=== PATIENT | male | born 1935 | race Caucasian/White ===

== ENCOUNTER → 2019-04-04 | Outpatient (CLI) | payer OTHER ==
[~2019-04-04] MED LIST: NAPROSYN500 MG PO; PRAVACHOL20 MG PO; SYNTHROID100 MC1 PO; TRAMADOL 50 MG50 MG PO; ZANTAC 150MG T150 MG PO
== END ==
LOC: M.PC 03-21 11:00
DX: M51.36 Other intervertebral disc degeneration, lumbar region (principal); M47.816 Spondylosis without myelopathy or radiculopathy, lumbar region; M48.061 Spinal stenosis, lumbar region without neurogenic claudication; M16.11 Unilateral primary osteoarthritis, right hip; Z79.899 Other long term (current) drug therapy